=== PATIENT | male | born 1985 | race Caucasian/White ===

== ENCOUNTER 2025-03-09 13:55 | Emergency (ER) | payer OTHER, SELFPAY ==
[2025-03-09] VITALS (35 sets, daily range): BP systolic 139–177; BP diastolic 98–119; PULSE 62–88; TEMP 36.6; O2SAT 95–100; BMI 34.3
--- NOTE | 2025-03-09 14:55 | ED.GENADUL1 ---
HPI HPI - General Adult General Chief complaint: Headache Stated complaint: HEDACHE AND HIGH BLOOD PRESURE Time Seen by Provider: 03/09/25 14:54 Source: patient and friend Mode of arrival: walk-in Limitations: no limitations History of Present Illness HPI narrative: Patient is a 39-year-old male presents to the ER with concerns of hypertension and headache. Patient states he was seen by a primary care physician once approximately 6 months ago and was treated for high blood pressure he notes his blood pressure is typically 170/110. He states he has not followed up for unknown reasons for several months and has been out of his medication previously taking lisinopril. Patient denies any fever chills or head injury. States pain is moderate posterior scalp radiating through his head mild nausea some light sensitivity but no phonophobia. Patient states he typically gets headaches frequently in the month but usually not this severe. He admits to heavy caffeine use at times and has been trying to cut back recently given the effects on his heart rate and blood pressure that he is aware of. He reports cutting his caffeine down in the past couple days which may be contributing to his headache 2. He also has 3 children. No family history of cerebral aneurysm. His mother has a history of strokes from carotid artery disease. Patient is a former smoker and currently uses vaping products. He denies any alcohol use. Patient appears nontoxic in no acute distress but notes his symptoms have not improved with taking some fluids at home and he is concerned about his persistent high blood pressure. He denies any loss of vision or sinus congestion.. Patient admits that this is not the worst headache of his life. Onset (ago): day(s) Location: Reports head Severity: moderate Quality: Denies burning or stabbing Pain Consistency: Reports constant Exacerbating factors: Reports none Associated symptoms: Reports other (chest pain at times) Related Data Previous Rx's ?Medication ?Instructions ?Recorded lisinopril 10 mg tablet 10 mg PO DAILY 30 days #30 tabs 03/09/25 Allergies Allergy/AdvReac Type Severity Reaction Status Date / Time Penicillins Allergy Unknown Hives Verified 03/09/25 14:07 Opioid HPI Opioid Management Most Recent Opioid Data: Last Pain Scale 7 03/09/25 15:51 03/09/25 Last MAR Pain Assessment 03/09/25 15:41 Review of Systems ROS Constitutional Denies: fever or chills Eyes Reports: light sensitivity; Denies: change in vision, blurry vision or blind spots Ears, nose, mouth, and throat Denies: throat pain or neck pain Cardiovascular Reports: chest pain; Denies: palpitations or edema Respiratory Denies: shortness of breath or cough Gastrointestinal Denies: abdominal pain, nausea or vomiting Genitourinary Denies: painful urination, urinary frequency or urinary urgency Musculoskeletal Denies: back pain or neck pain Integumentary/Breast Denies: rash, itching or redness Neurological Reports: headache; Denies: numbness in extremities or weakness in extremities Psychiatric Denies: anxiety Endocrine Denies: excessive urination Hematologic/Lymphatic Denies: easy bruising PFSH PFSH Social History Little interest or pleasure in doing things: not at all Feeling down, depressed, or hopeless: not at all Exam Narrative Exam Narrative: Vital signs and nurses notes reviewed. The patient is not hypoxic. General: The patient appears well and in no apparent distress. Patient is resting comfortably on cart. Skin: Warm, dry, no pallor noted. The patient has no evidence of rash, petechiae, or purpura noted. Head: Normocephalic, atraumatic, no temporal arterial tenderness Neck: Supple, trachea mid-line, no tenderness, no lymphadenopathy. No meningeal signs. No nuchal rigidity. Eye: Pupils are equal, round and reactive to light, EOMI Ears, Nose, Mouth, and Throat: Oral mucosa is moist, TMs are clear bilaterally, no hemotympanum noted. Cardiovascular: Regular Rate and Rhythm Respiratory: Patient is in no distress, no accessory muscle use, lungs are clear to auscultation, no wheezing, rales or rhonchi Back: non-tender, no CVA tenderness Musculoskeletal: normal ROM, no tenderness, no swelling, normal strength 5/5. Normal pulses to radial 2+ bilaterally and 2+ at DP and PT bilaterally and symmetrically. GI: Normal bowel sounds, no tenderness to palpation, no masses appreciated. No rebound, guarding, or rigidity noted. Neurological: A&O x4, normal equal thermostatic controls supervisor strength, The patient is not ataxic. The patient has normal speech. The patient has normal coordination. . Normal motor and sensory observed. Psychiatric: Cooperative Constitutional Vital Signs, click to edit/add: Last Vital Signs Temp 98 F 03/09/25 14:02 Pulse 66 03/09/25 17:20 Resp 14 03/09/25 17:20 BP 151/98 H 03/09/25 17:16 Pulse Ox 98 03/09/25 17:20 O2 Del Method Room Air 03/09/25 14:02 Course Vital Signs Vital signs: Vital Signs Temperature 98 F 03/09/25 14:02 Pulse Rate 85 03/09/25 14:02 Respiratory Rate 18 03/09/25 14:02 Blood Pressure 162/113 H 03/09/25 14:02 Pulse Oximetry 100 03/09/25 14:02 Oxygen Delivery Method Room Air 03/09/25 14:02 Temperature 98 F 03/09/25 14:02 Pulse Rate 66 03/09/25 17:20 Respiratory Rate 14 03/09/25 17:20 Blood Pressure 151/98 H 03/09/25 17:16 Pulse Oximetry 98 03/09/25 17:20 Oxygen Delivery Method Room Air 03/09/25 14:02 Medical Decision Making MDM Narrative Medical decision making narrative: Patient admits this headache is worse than his normal daily headaches he does get frequent headaches within the month. We discussed his previous blood pressure medication he is given 1 tablet here and we will refill his prescription pending follow-up with his PCP. Baseline labs were obtained given his likely elevated blood pressure for several months. We discussed mutually the utility of a CT scan given his symptoms and patient notes that today's headache is much worse than his previous baseline headaches and is abnormal. We also discussed triggers including his caffeine use and recent cessation. CT of the head will be performed with risks and benefits discussed. Patient given IV fluid bolus IV Benadryl IV Toradol and IV Zofran for symptoms. He will be reassessed Patient reevaluated, his blood pressure is significantly improved 150/104 heart rate is 62 pulse ox 98%. The patient has been sleeping, he wakes easily and notes that his headache is near completely gone. We discussed the importance of his hypertension and the need to take medication daily with close follow-up to his PCP. Patient verbalized understanding had no further concerns or questions. The patient is to followup with primary care physician in next 2-3 days or to return to the emergency department should any of the signs or symptoms worsen or new symptoms develop. Patient had questions answered. The patient agrees with the following Diagnosis and Treatment plan and the patient will be discharged home. Lab Data Lab results reviewed: Yes I reviewed the patient's lab results Labs: Lab Results 03/09/25 Range/Units 14:15 WBC 6.3 (4.0-11.0) 10^3/uL RBC 5.45 (4.70-6.10) 10^6/uL Hgb 16.8 (14.0-18.0) g/dL Hct 48.2 (42.0-54.0) % MCV 88.4 (80.0-94.0) fL MCH 30.8 (25.9-34.0) pg MCHC 34.9 (29.9-35.2) g/dL RDW 12.7 (11.0-15.0) % Plt Count 243 (150-450) 10^3/uL MPV 10.7 (9.5-13.5) fL Neut % (Auto) 70.7 (43.0-75.0) % Lymph % (Auto) 17.4 L (20.5-60.0) % Woodson % (Auto) 7.7 (1.7-12.0) % Eos % (Auto) 3.4 (0.9-7.0) % Baso % (Auto) 0.6 (0.2-2.0) % Neut # (Auto) 4.4 (1.4-6.5) 10^3/uL Lymph # (Auto) 1.1 L (1.2-3.8) 10^3/uL Woodson # (Auto) 0.5 (0.3-0.8) 10^3/uL Eos # (Auto) 0.2 (0.0-0.7) 10^3/uL Baso # (Auto) 0.0 (0.0-0.1) 10^3/uL Abs Immat Gran (auto) 0.01 (0.00-0.03) 10^3/uL Imm/Tot Granulo (auto) 0.2 (0.0-0.5) % Sodium 140 (136-145) mmol/L Potassium 4.5 (3.5-5.1) mmol/L Chloride 105 (98-107) mmol/L Carbon Dioxide 26.3 (21.0-32.0) mmol/L Anion Gap 13.2 BUN 11.0 (7.0-18.0) mg/dL Creatinine 0.92 (0.70-1.30) mg/dL Est GFR ( Amer) >60 (>=60 mL/min/1.73m^2) Est GFR (Non-Af Amer) >60 (>=60 mL/min/1.73m^2) BUN/Creatinine Ratio 12.0 Glucose 92 (74-106) mg/dL Calcium 9.2 (8.5-10.1) mg/dL Total Bilirubin 0.9 (0.2-1.0) mg/dL AST 19 (15-37) U/L ALT 28 (16-63) U/L Alkaline Phosphatase 55 (46-116) U/L Troponin I High Sens <4.0 L (4.0-76.1) pg/mL Total Protein 7.0 (6.4-8.2) g/dL Albumin 3.8 (3.4-5.0) g/dL Globulin 3.2 g/dL Albumin/Globulin Ratio 1.[address] scan - head: Attestation: I have reviewed the pertinent imaging results. Radiologist's impression: CT head no acute intracranial process. No mass or mass effect or midline shift. Chest x-ray: Attestation: I personally reviewed and interpreted this imaging study as follows: My impression: No cardiomegaly no pneumonia or pneumothorax Radiologist's impression: Chest x-ray no acute cardiopulmonary process. ECG Data Attestation: I personally reviewed and interpreted this ECG as follows: Interpretation: EKG interpretation: Emergency Department physician interpretation, normal sinus rhythm 74 bpm/, no ectopy, no ST segment elevation, normal axis. Discharge Plan Discharge Chief Complaint: Headache Clinical Impression: Headache, Hypertension Patient Disposition: Home, Self-Care Time of Disposition Decision: 17:22 Condition: Good Prescriptions / Home Meds: New lisinopril 10 mg tablet 10 mg PO DAILY 30 Days Qty: 30 1RF Print Language: French Instructions: Acute Headache (ED), Acute Headache (DC) Additional Instructions: Your doctor in 3-5 days for recheck ( [facility]) Take your blood pressure daily around the same time. Referrals: Rickey Park MD [Primary Care Provider] - 1 week Discharge Date/Time: 03/09/25 17:33
--- NOTE | 2025-03-09 15:20 | ECG_ITS ---
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 Measurements Intervals [place] Rate: 74 P: 26 [place]: 146 QRS: -1 QRSD: 94 T: 38 QT: 364 QTc: 391 Interpretive Statements 1100 Sinus rhythm 9110 normal ECG No previous ECG available for comparison Electronically Signed On 03-09-2025 20:49:53 EDT by JOHN GALICIA M.D.
[2025-03-09 15:21] LABS: Basophils Percent Auto 0.6 % (0.2-2.0); Eosinophils Absolute Auto 0.2 10^3/uL (0.0-0.7); Eosinophils Percent Auto 3.4 % (0.9-7.0); Hematocrit 48.2 % (42.0-54.0); Hemoglobin 16.8 g/dL (14.0-18.0); Immature Granulocytes Abs Auto 0.01 10^3/uL (0.00-0.03); Immature Granulocytes Pct Auto 0.2 % (0.0-0.5); Lymphocytes Absolute Auto 1.1 10^3/uL (1.2-3.8); Lymphocytes Percent Auto 17.4 % (20.5-60.0); Mean Corpuscular HGB Conc 34.9 g/dL (29.9-35.2); Mean Corpuscular Hemoglobin 30.8 pg (25.9-34.0); Mean Corpuscular Volume 88.4 fL (80.0-94.0); Mean Platelet Volume 10.7 fL (9.5-13.5); Monocytes Absolute Auto 0.5 10^3/uL (0.3-0.8); Monocytes Percent Auto 7.7 % (1.7-12.0); Neutrophils Absolute Auto 4.4 10^3/uL (1.4-6.5); Neutrophils Percent Auto 70.7 % (43.0-75.0); Platelet Count 243 10^3/uL (150-450); Red Blood Count 5.45 10^6/uL (4.70-6.10); Red Cell Distribution Width 12.7 % (11.0-15.0); White Blood Count 6.3 10^3/uL (4.0-11.0)
[2025-03-09 15:28] LABS: Alanine Aminotransferase 28 U/L (16-63); Albumin Globulin Ratio 1.2; Albumin Level 3.8 g/dL (3.4-5.0); Alkaline Phosphatase 55 U/L (46-116); Anion Gap 13.2; Aspartate Amino Transferase 19 U/L (15-37); Bilirubin Total 0.9 mg/dL (0.2-1.0); Calcium 9.2 mg/dL (8.5-10.1); Carbon Dioxide 26.3 mmol/L (21.0-32.0); Chloride 105 mmol/L (98-107); Estimated GFR (African America >60 (>=60 mL/min/1.73m^2); Estimated GFR (Non-African Ame >60 (>=60 mL/min/1.73m^2); Globulin 3.2 g/dL; Glucose 92 mg/dL (74-106); Potassium 4.5 mmol/L (3.5-5.1); Sodium 140 mmol/L (136-145)
[2025-03-09] MEDS: DIAZEPAM 10 MG/2 ML SYRINGE 2 MG IV (15:40)
[2025-03-09] MEDS: LISINOPRIL 10 MG TABLET PO (15:41)
[2025-03-09] MEDS: ONDANSETRON PF 4 MG/2 ML VIAL IV (15:41)
[2025-03-09] MEDS: 0.9 % SODIUM CHLORIDE 1,000 ML 999 ML IV (15:41)
[2025-03-09] MEDS: KETOROLAC TROMETHAMINE 30 MG/ML VIAL IVP (15:41)
[2025-03-09] MEDS: DIPHENHYDRAMINE HCL 50 MG/ML VIAL 25 MG IVP (15:41)
[2025-03-09 15:43] LABS: Troponin I High Sensitivity <4.0 pg/mL (4.0-76.1)
== END 2025-03-09 17:33 | disposition home or self-care (01) ==
PROVIDERS: Personal Emergency Response Attendant; Emergency Provider Emergency Medicine; PCP Family Medicine
DX: R51.9 Headache, unspecified (principal); R07.9 Chest pain, unspecified; F17.290 Nicotine dependence, other tobacco product, uncomplicated; I10 Essential (primary) hypertension
CPT/HCPCS: 36415; 70450; 71045; 80053; 84484; 85025; 93005; 96374; 96375; 99285; J1200; J1885; J2405; J3360